=== PATIENT | male | born 1935 | race Caucasian/White ===

== ENCOUNTER 2018-07-13 09:58 | Day surgery (SDC) | payer MEDICARE, OTHER ==
--- NOTE | 2018-07-12 13:30 | RAD REPORT ---
EXAM DESCRIPTION: RAD - Chest Pa And Lat (2 Views) - 07/12/2018 1:24 pm CLINICAL HISTORY: Preop chest, pending hernia repair, history of diabetes, history of open heart roslyn orestes COMPARISON: May 2017 TECHNIQUE: PA and lateral views of the chest were obtained. FINDINGS: The lungs are clear of an acute infiltrate, suspicious mass or failure finding. A few gran ulomas are present and stable. Patient has a mild interstitial lung disease pattern. Lung markings ar e stable from comparison. Sternotomy wires are in place. Heart size is normal and central vasculatu re is within normal limits. No pleural effusion or pneumothorax seen. No acute bony finding noted. No aortic abnormality. IMPRESSION: Mild chronic interstitial lung disease and old granulomatous disease. No acute finding or significant change from comparison.
[2018-07-12 14:47] LABS: Absolute Lymphocytes (CBC) 1.1 K/uL (0.7-4.9); Absolute Monocytes 0.3 K/uL (0.1-1.3); Absolute Neutrophil 4.2 K/uL (1.8-8.0); Basophils % 0.9 % (0-1.3); Eosinophils % 3.1 % (0-4.4); Hematocrit 42.4 % (39.6-49.0); Lymphocytes % 19.2 % (15.3-44.8); MCH 32.9 pg (27.0-35.0); MCV 94.1 fL (80-100); MPV 9.9 fL (7.6-11.3); Monocytes % 5.6 % (3.3-12.3); RBC Red Blood Cell Count 4.51 M/uL (4.33-5.43)
[2018-07-12 14:59] LABS: Potassium 4.1 mmol/L (3.5-5.1)
[~2018-07-13 09:58] MED LIST: CEFAZOLIN/SWI 1gm 1 GM/10 ML SYR IVP SCH
[2018-07-13] MEDS ORDERED: NA CHLORIDE 0.9% 1,000 ML ONE (10:23)
[2018-07-13] MEDS ORDERED: PROPOFOL 200 MG/20 ML VIAL IV ONE (11:23)
[2018-07-13] MEDS ORDERED: GLYCOPYRROLATE 0.2 MG/ML SYR ONE ×3 (11:24→12:24)
[2018-07-13] MEDS ORDERED: LIDOCAINE 1% MPF 5 ML VIAL ONE (11:24)
[2018-07-13] MEDS ORDERED: FENTANYL CITR 100 MCG/2 ML ONE (11:25)
[2018-07-13] MEDS ORDERED: ROCURONIUM 50 MG/5 ML VIAL IV ONE (11:43)
[2018-07-13] MEDS ORDERED: CEFAZOLIN/SWI 1gm 1 GM/10 ML SYR ONE (11:54)
[2018-07-13] MEDS ORDERED: NEOSTIGMINE 1 MG/ML -5 ML SYRINGE ONE (11:54)
[2018-07-13] MEDS ORDERED: EPHEDRINE SULF 50 MG/10 ML SYR ONE (12:14)
[2018-07-13] MEDS ORDERED: ATROPINE SULF 1 MG/10 ML SYR IV ONE (12:24)
--- NOTE | 2018-07-13 12:47 | P.BOP ---
Preoperative diagnosis: recurrent left inguinal hernia Postoperative diagnosis: same Primary procedure: Open repair of recurrent tender left inguinal hernia with mesh Network Control Operators Supervisor: ELVIS VILLASENOR Estimated blood loss: <10cc Specimen: hernia sac Anesthesia: General Complications: None Implants: mesh plug Transferred to: Recovery Room Condition: Good
[2018-07-13 13:50] VITALS: O2SAT 95
[2018-07-13 15:29] VITALS: BP 162/54; TEMP 97.5
--- NOTE | 2018-07-14 00:03 | DS ---
Date of Discharge: 07/13/2018 Diagnosis: Recurrent tender left inguinal hernia. Procedures: Open repair of recurrent tender left inguinal hernia with mesh. Disposition: Home. Activity: As tolerated. No heavy lifting. Followup: Follow up in my office in 1 week. Call for appointment [phone]. Keep area dry for 48 ho urs, then may shower. Keep cold compress over the area for the next 24 hours. Medications: Include Tylenol No. 3 q.4 hours p.r.n. pain, Bactrim DS p.o. b.i.d. ABIOLA/ROBIN Voice ID: [id number] Report ID: [id number]
--- NOTE | 2018-07-14 00:03 | OP ---
Date of Procedure: 07/13/2018 Surgeon: Vadim Colon MD Special Effects Person: Alissa Herrmann. Preoperative Diagnosis: Recurrent tender left inguinal hernia. Postoperative Diagnosis: Recurrent tender left inguinal hernia. Procedures: Open repair of recurrent tender left inguinal hernia with mesh. Estimated Blood Loss: Less than 10 cc. Specimen: Hernia sac. Complications: None. Implant: Mesh plug. Indications: This is the case of an 83-year-old patient with multiple medical problems. He is a hea vy regional manager. He has a lot of work that he does because he is 83 years old very active man and same tatianna e that obviously he carried consequences of lifting and hernia, so he has multiple hernias in his bod y repaired in the past, he says in the left side. He thinks this is #4 time. He was advised the imp ortance of taking care of himself and avoiding heavy lifting, although he claims back that he is a ve ry active man and he will remain like that. So, we advised him about ways how to do alternate moveme nts, so he does not develop hernias all the time from wear and tear. He understands the benefits, al ternatives, and risks of repair which include, but not limited to infection, bleeding, damage to tomas cent structures, anesthesia complication, nonhealing wound, chronic numbness, chronic pain, AL, and e maria dolores . He also understands this may not relieve any symptoms, he might need more than one surgic al intervention. He has previous mesh in that area. He has also the risk of a damage to the testicl es, not only the vas deferens but also blood vessels and nerves from all of his hernias repair. At o ne point, maybe we might not be able to repair that, so that is why it is so important for him to be compliant. He is tender, so he wants to repair this time once again, so we understanding those restr ictions will agree to help. Description Of Procedure: Area was marked by me and the patient in the holding room. A time-out was called after the patient was prepped and draped in usual sterile fashion and after inducing anesthes ia. An inguinal incision was made using one of the previous incisions all the way down to the Daniela 's fascia until we find external oblique aponeurosis, which was opened in direction of the fiber. Il ioinguinal nerve and iliohypogastric nerve were identified and protected behind external oblique apon eurosis. We noticed spermatic cord going through a lot of scar tissue present in that area, also pre vious mesh and previous clip. We noticed a small opening in that just right at the pubic tubercle an d the previous mesh. We noticed that we can dissect the hernia sac and ligated free with 2-0 nylon a fter making sure the content is completely reduced, which is fatty tissue in this time. The hernia s ac was suture ligated after twisting and once again making sure there is no content inside the hernia sac. Then, after that, I used mesh plug and feel like cavity there and secured to the pubic tubercl e with shelving edge of the inguinal ligament and some of the transversalis fascia and made sure the mesh goes nice and secured in that area, but allowing spermatic cord to come through it without stran gulation. The testicles seem to be intact. So, that moment, I proceeded then to irrigate the area, injection of local anesthetic, closed the external oblique aponeurosis after putting the nerve back i nto the inguinal canal. The ilioinguinal nerve, iliohypogastric nerve and then external oblique apon eurosis and then after that, we proceeded to close Daniela's fashion with 3-0 chromic and then the ski n with radha. Sponge counts and instrument counts were correct at the end of the case. Testicles were in the scrotum. The patient was sent to recovery in stable condition. NAHID Voice ID: [id number] Report ID: [id number]
== END 2018-07-13 14:50 | disposition home or self-care (01) ==
LOC: OR 09:58
PROVIDERS: ATTEND Surgery
PROC: 0YU64JZ Supplement Left Inguinal Region with Synthetic Substitute, Percutaneous Endoscopic Approach (ICD-10-PCS; principal; 2018-07-13 13:00)
DX: K40.31 Unilateral inguinal hernia, with obstruction, without gangrene, recurrent (principal); Z96.653 Presence of artificial knee joint, bilateral; E11.9 Type 2 diabetes mellitus without complications; I10 Essential (primary) hypertension
CPT/HCPCS: 36415; 49651; 71046; 80048; 82962 ×2; 85025; 88302; J0690; J2710; J3010; J7030

== ENCOUNTER 2019-02-01 07:54 | Inpatient (IN) | payer MEDICARE ==
--- NOTE | 2019-02-01 08:53 | RAD REPORT ---
EXAM DESCRIPTION: RAD - Chest Single View - 02/01/2019 8:45 am CLINICAL HISTORY: COUGH Chest pain. COMPARISON: Chest Pa And Lat (2 Views) dated 01/23/2019; Chest Pa And Lat (2 Views) dated 11/07/2018; Chest Pa And Lat (2 Views) dated 07/12/2018; Chest Pa And Lat (2 Views) dated 06/11/2017 FINDINGS: Portable technique limits examination quality. Mild ill-defined opacity is present in the right lung base which may represent developing pneumonia/ aspiration. Small bilateral pleural effusions are seen. The heart is moderately enlarged in size. No displaced fractures.Sternotomy wires seen. IMPRESSION: Small developing infiltrate versus focus of aspiration in the right lower lobe noted.
[2019-02-01 09:15] LABS: Absolute Lymphocytes (CBC) 0.8 K/uL (0.7-4.9); Absolute Monocytes 0.4 K/uL (0.1-1.3); Absolute Neutrophil 5.5 K/uL (1.8-8.0); Basophils % 0.7 % (0-1.3); Eosinophils % 1.7 % (0-4.4); Hematocrit 41.3 % (39.6-49.0); Lymphocytes % 11.1 % (15.3-44.8); Monocytes % 6.3 % (3.3-12.3); RBC Red Blood Cell Count 4.43 M/uL (4.33-5.43)
[2019-02-01 09:16] LABS: Protime INR 1.1
[2019-02-01 09:32] LABS: Albumin 3.5 g/dL (3.4-5.0); Bilirubin Direct 0.2 mg/dL (0-0.2); Bilirubin Total 0.8 mg/dL (0.2-1.0); Magnesium 2.6 mg/dL (1.8-2.4); Potassium 3.7 mmol/L (3.5-5.1); Protein, Total 6.4 g/dL (6.4-8.2); Troponin (Emerg Dept Use Only) 0.02 ng/mL (0.0-0.045)
--- NOTE | 2019-02-01 10:01 | ER ---
Nurse's Notes [facility] Name: Maximino Bhat Age: 83 yrs Sex: Male : 1935 Arrival Date: 02/01/2019 Time: 07:56 Bed 4 Private MD: Paige Stapleton C Diagnosis: Dyspnea;Unspecified combined systolic (congestive) and diastolic (congestive) heart failure Presentation: 02/01 08:04 Presenting complaint: Patient states: cough and congestion x 1 month. Pt reports at ss 0100 this morning he had nasal congestion which he believes was caused by the azithromycin he had been taking. Transition of care: patient was not received from another setting of care. Onset of symptoms is unknown. Risk Assessment: Do you want to hurt yourself or someone else? Patient reports no desire to harm self or others. Initial Sepsis Screen: Does the patient meet any 2 criteria? No. Patient's initial sepsis screen is negative. Does the patient have a suspected source of infection? No. Patient's initial sepsis screen is negative. Care prior to arrival: None. 08:04 Method Of Arrival: Ambulatory ss 08:04 Acuity: MARINE 3 ss Historical: - Allergies: 08:06 No Known Allergies; ss - PMHx: 08:06 Hypertension; Diabetes - IDDM; CAD; Myocardial infarction; High Cholesterol; ss - PSHx: 08:06 Triple bypass; Knee surgery; ss - Immunization history:: Adult Immunizations up to date. - Social history:: Smoking status: Patient/guardian denies using tobacco. - Ebola Screening: : Patient denies exposure to infectious person Patient denies travel to an Ebola-affected area in the 21 days before illness onset. - Family history:: not pertinent. Screenin:09 Abuse screen: Denies threats or abuse. Denies injuries from another. Nutritional sg screening: No deficits noted. Tuberculosis screening: No symptoms or risk factors identified. Never had TB. Fall Risk None identified. Assessment: 08:23 General: Appears in no apparent distress. comfortable, well groomed, well developed, sg well nourished, Behavior is calm, cooperative, appropriate for age. Pain: Denies pain. Neuro: Level of Consciousness is awake, alert, obeys commands, Oriented to person, place, time, situation, Power Project Manager are equal bilaterally Moves all extremities. Full function Gait is steady, Speech is normal, Facial symmetry appears normal, Pupils are PERRLA. Cardiovascular: Capillary refill is brisk in bilateral fingers Patient's skin is warm and dry. Pulses are palpable in right radial artery and left radial artery Chest pain is denied. Respiratory: Airway is patent Respiratory effort is even, unlabored, Respiratory pattern is regular, symmetrical, Breath sounds are clear bilaterally. GI: Abdomen is flat, non-distended, Bowel sounds present X 4 quads. : No signs and/or symptoms were reported regarding the genitourinary system. EENT: No signs and/or symptoms were reported regarding the EENT system. Derm: Skin is pink, warm \T\ dry. Musculoskeletal: No signs and/or symptoms reported regarding the musculoskeletal system. Vital Signs: 08:01 Temp 97.0; ss 08:04 Resp 16; Weight 61.23 kg; Height 6 ft. 1 in. (185.42 cm); Pain 0/10; ss 08:07 BP 151 / 83; sv 08:30 BP 150 / 75; Pulse 73; Resp 14; Pulse Ox 98% ; sv 09:48 BP 147 / 80; Pulse 80; Resp 14; Pulse Ox 98% ; sv 10:30 BP 163 / 81; Pulse 71; Resp 14; Pulse Ox 95% ; sv 11:00 BP 155 / 76; Pulse 71; Resp 14; Pulse Ox 95% ; sv 11:55 BP 158 / 86; Pulse 89; Resp 14; Pulse Ox 96% on R/A; aj1 08:04 Body Mass Index 17.81 (61.23 kg, 185.42 cm) ss ED Course: 07:56 Patient arrived in ED. as 07:56 Paige Stapleton MD is Private Physician. as 07:58 Kervin Velez, RN is Primary Nurse. sg 08:00 Stew Polanco MD is Attending Physician. candi 08:06 Triage completed. ss 08:06 Arm band placed on right wrist. ss 08:10 EKG done, by highway maintenance technician. reviewed by Stew Polanco MD. at1 08:44 X-ray completed. Portable x-ray completed in exam room. Patient tolerated procedure jb2 well. 08:45 XRAY Chest (1 view) In Process Unspecified. EDMS 09:00 Initial lab(s) drawn, by me, sent to lab. Inserted saline lock: 20 gauge in right sg forearm, using aseptic technique. Blood collected. 09:00 First set of blood cultures drawn by me. sg 09:30 Second set of blood cultures drawn by me. 10:00 Paige Stapleton MD is Hospitalizing Provider. [facility] 12:00 No provider procedures requiring assistance completed. aj1 12:05 Patient has correct armband on for positive identification. aj1 12:17 Report given to SHAGGY Prather on 4th floor. aj1 Administered Medications: 11:09 Drug: Lasix 20 mg Route: IVP; Site: right antecubital; aj1 11:10 Drug: D50W 25 ml Route: IVP; Site: right antecubital; aj1 11:50 Drug: Zithromax 250 mg Route: IVPB; Infused Over: 1 hrs; Site: right antecubital; aj1 Point of Care Testing: Blood Glucose: 11:50 Blood Glucose: 79 mg/dL; aj1 Ranges: Outcome: 10:01 Decision to Hospitalize by Provider. [facility] 12:01 Admitted to Tele accompanied by tech, via wheelchair. aj1 12:01 Condition: stable 12:01 Discharge instructions given to patient, Instructed on the need for admit, Demonstrated understanding of instructions. 12:12 Patient left the ED. bd Signatures: Dispatcher [employer] EDMS Bre Rebolledo Angela, RN RN aj1 Merced Cali, RN Kervin Herzog RN RN sg Anderson, Corey, MD MD cha Buechter, Jesse jbLanny King Shelby, RN RN ss Gonzales, Amanda, curriculum manager EKG Tat1
--- NOTE | 2019-02-01 10:01 | EDPHYS ---
Physician Documentation [facility] Name: Maximino Bhat Age: 83 yrs Sex: Male : 1935 Arrival Date: 02/01/2019 Time: 07:56 Bed 4 Private MD: Paige Stapleton C ED Physician Stew Polanco HPI: 02/01 08:34 This 83 yrs old Male presents to ER via Ambulatory with complaints of candi Shortness Of Breath. 08:34 The patient has shortness of breath with light activity. Onset: The symptoms/episode candi began/occurred 3 day(s) ago. Duration: The symptoms are chronic. The patient's shortness of breath has no apparent modifying factors. Associated signs and symptoms: The patient has no apparent associated signs or symptoms. Severity of symptoms: At their worst the symptoms were. The patient has experienced similar episodes in the past, several times. Historical: - Allergies: 08:06 No Known Allergies; ss - PMHx: 08:06 Hypertension; Diabetes - IDDM; CAD; Myocardial infarction; High Cholesterol; ss - PSHx: 08:06 Triple bypass; Knee surgery; ss - Immunization history:: Adult Immunizations up to date. - Social history:: Smoking status: Patient/guardian denies using tobacco. - Ebola Screening: : Patient denies exposure to infectious person Patient denies travel to an Ebola-affected area in the 21 days before illness onset. - Family history:: not pertinent. ROS: 08:34 Constitutional: Negative for fever, chills, and weight loss, Eyes: Negative for injury, candi pain, redness, and discharge, ENT: Negative for injury, pain, and discharge, Neck: Negative for injury, pain, and swelling, Cardiovascular: Negative for chest pain, palpitations, and edema, Abdomen/GI: Negative for abdominal pain, nausea, vomiting, diarrhea, and constipation, Back: Negative for injury and pain, : Negative for injury, bleeding, discharge, and swelling, MS/Extremity: Negative for injury and deformity, Skin: Negative for injury, rash, and discoloration, Neuro: Negative for headache, weakness, numbness, tingling, and seizure, Psych: Negative for depression, anxiety, suicide ideation, homicidal ideation, and hallucinations, Allergy/Immunology: Negative for hives, rash, and allergies, Endocrine: Negative for neck swelling, polydipsia, polyuria, polyphagia, and marked weight changes, Hematologic/Lymphatic: Negative for swollen nodes, abnormal bleeding, and unusual bruising. 08:34 Respiratory: Positive for cough. Exam: 08:34 Constitutional: This is a well developed, well nourished patient who is awake, alert, candi and in no acute distress. Head/Face: Normocephalic, atraumatic. Eyes: Pupils equal round and reactive to light, extra-ocular motions intact. Lids and lashes normal. Conjunctiva and sclera are non-icteric and not injected. Cornea within normal limits. Periorbital areas with no swelling, redness, or edema. ENT: Nares patent. No nasal discharge, no septal abnormalities noted. Tympanic membranes are normal and external auditory canals are clear. Oropharynx with no redness, swelling, or masses, exudates, or evidence of obstruction, uvula midline. Mucous membranes moist. Neck: Trachea midline, no thyromegaly or masses palpated, and no cervical lymphadenopathy. Supple, full range of motion without nuchal rigidity, or vertebral point tenderness. No Meningismus. Chest/axilla: Normal chest wall appearance and motion. Nontender with no deformity. No lesions are appreciated. Cardiovascular: Regular rate and rhythm with a normal S1 and S2. No gallops, murmurs, or rubs. Normal PMI, no JVD. No pulse deficits. Respiratory: Lungs have equal breath sounds bilaterally, clear to auscultation and percussion. No rales, rhonchi or wheezes noted. No increased work of breathing, no retractions or nasal flaring. Abdomen/GI: Soft, non-tender, with normal bowel sounds. No distension or tympany. No guarding or rebound. No evidence of tenderness throughout. Back: No spinal tenderness. No costovertebral tenderness. Full range of motion. Male : Normal genitalia with no discharge or lesions. Skin: Warm, dry with normal turgor. Normal color with no rashes, no lesions, and no evidence of cellulitis. Neuro: Awake and alert, GCS 15, oriented to person, place, time, and situation. Cranial nerves II-XII grossly intact. Motor strength 5/5 in all extremities. Sensory grossly intact. Cerebellar exam normal. Normal gait. Psych: Awake, alert, with orientation to person, place and time. Behavior, mood, and affect are within normal limits. 08:34 Musculoskeletal/extremity: DVT Exam: no pain, no tenderness, negative Homans' sign noted on exam, no appreciated bluish discoloration, no erythema, no increased warmth, swelling. Vital Signs: 08:01 Temp 97.0; ss 08:04 Resp 16; Weight 61.23 kg; Height 6 ft. 1 in. (185.42 cm); Pain 0/10; ss 08:07 BP 151 / 83; sv 08:30 BP 150 / 75; Pulse 73; Resp 14; Pulse Ox 98% ; sv 09:48 BP 147 / 80; Pulse 80; Resp 14; Pulse Ox 98% ; sv 10:30 BP 163 / 81; Pulse 71; Resp 14; Pulse Ox 95% ; sv 11:00 BP 155 / 76; Pulse 71; Resp 14; Pulse Ox 95% ; sv 11:55 BP 158 / 86; Pulse 89; Resp 14; Pulse Ox 96% on R/A; aj1 08:04 Body Mass Index 17.81 (61.23 kg, 185.42 cm) ss MDM: 08:01 Patient medically screened. [facility] 08:36 Data reviewed: vital signs, nurses notes, lab test result(s), EKG, radiologic studies, candi plain films. 02/01 08:34 Order name: Basic Metabolic Panel; Complete Time: 09:49 [facility] 02/01 08:34 Order name: CBC with Diff; Complete Time: 09:49 [facility] 02/01 08:34 Order name: LFT's; Complete Time: 09:49 [facility] 02/01 08:34 Order name: Magnesium; Complete Time: 09:49 [facility] 02/01 08:34 Order name: NT PRO-BNP; Complete Time: 09:49 [facility] 02/01 08:34 Order name: PT-INR; Complete Time: 09:49 [facility] 02/01 08:34 Order name: Troponin (emerg Dept Use Only); Complete Time: 09:49 [facility] 02/01 08:34 Order name: XRAY Chest (1 view); Complete Time: 09:49 [facility] 02/01 08:37 Order name: Flu; Complete Time: 09:49 [facility] 02/01 09:13 Order name: Blood Culture Adult (2) [facility] 02/01 09:13 Order name: Procalcitonin [facility] 02/01 09:59 Order name: Echo w/ Doppler [facility] 02/01 11:53 Order name: Glucose, Ancillary Testing EDMS 02/01 08:34 Order name: EKG; Complete Time: 08:35 [facility] 02/01 08:34 Order name: Cardiac monitoring; Complete Time: 08:46 [facility] 02/01 08:34 Order name: EKG - Nurse/Tech; Complete Time: 08:46 [facility] 02/01 08:34 Order name: IV Saline Lock; Complete Time: 09:11 [facility] 02/01 08:34 Order name: Labs collected and sent; Complete Time: 09:11 [facility] 02/01 08:34 Order name: O2 Per Protocol; Complete Time: 08:46 [facility] 02/01 08:34 Order name: O2 Sat Monitoring; Complete Time: 08:46 [facility] 02/01 10:11 Order name: CONS Physician Consult EDID Administered Medications: 11:09 Drug: Lasix 20 mg Route: IVP; Site: right antecubital; aj1 11:10 Drug: D50W 25 ml Route: IVP; Site: right antecubital; aj1 11:50 Drug: Zithromax 250 mg Route: IVPB; Infused Over: 1 hrs; Site: right antecubital; aj1 Point of Care Testing: Blood Glucose: 11:50 Blood Glucose: 79 mg/dL; aj1 Ranges: Critical Glucose Levels:Adult <50 mg/dl or >400 mg/dl <40 mg/dl or >180 mg/dl Disposition: 02/01/19 10:01 Hospitalization ordered by Paige Stapleton for Inpatient Admission. Preliminary diagnosis are Dyspnea, Unspecified combined systolic (congestive) and diastolic (congestive) heart failure. - Bed requested for Telemetry/MedSurg (Inpatient). - Status is Inpatient Admission. bd - Condition is Stable. - Problem is new. - Symptoms have improved. UTI on Admission? No Signatures: Dispatcher [employer] EDID Bre Rebolledo Angela, RN RN aj1 Stew Polanco MD MD cha Smirch, Shelby, RN RN ss Corrections: (The following items were deleted from the chart) 10:23 10:01 Hospitalization Ordered by Paige Stapleton MD for Inpatient Admission. Preliminary bd diagnosis is Dyspnea; Unspecified combined systolic (congestive) and diastolic (congestive) heart failure. Bed requested for Telemetry/MedSurg (Inpatient). Status is Inpatient Admission. Condition is Stable. Problem is new. Symptoms have improved. UTI on Admission? No. candi 10:34 10:23 02/01/2019 10:01 Hospitalization Ordered by A Daya CIFUENTES for Inpatient Admission. bd Preliminary diagnosis is Dyspnea; Unspecified combined systolic (congestive) and diastolic (congestive) heart failure. Bed requested for Telemetry/MedSurg (Inpatient). Status is Inpatient Admission. Condition is Stable. Problem is new. Symptoms have improved. UTI on Admission? No. bd 12:12 10:34 02/01/2019 10:01 Hospitalization Ordered by A Daya CIFUENTES for Inpatient Admission. bd Preliminary diagnosis is Dyspnea; Unspecified combined systolic (congestive) and diastolic (congestive) heart failure. Bed requested for Telemetry/MedSurg (Inpatient). Status is Inpatient Admission. Condition is Stable. Problem is new. Symptoms have improved. UTI on Admission? No. bd
[2019-02-01] MEDS ORDERED: FUROSEMIDE 20 MG/ 2ML VIAL ONE (11:05)
[2019-02-01] MEDS ORDERED: D50W 25 GM/50 ML SYRINGE IV ONE (11:07)
[2019-02-01] MEDS ORDERED: AZITHROMYCIN IV 250 MG in NA CHLORIDE 0.9% 250 ML IVPB ONE (11:15)
[2019-02-01] MEDS ORDERED: MORPHINE 2 MG/ML SYR IV PRN (12:15)
[2019-02-01] MEDS ORDERED: ALBUTEROL 2.5 MG/3 ML NEB SOL NEB PRN (12:15)
[2019-02-01] MEDS ORDERED: ACETAMINOPHEN 500 MG TAB PO PRN (12:15)
[2019-02-01] MEDS ORDERED: IPRATROPIUM BROM 0.5MG/2.5ML NEB PRN (12:15)
[2019-02-01] MEDS ORDERED: ONDANSETRON 4 MG/2 ML VIAL IV PRN (12:15)
[2019-02-01] MEDS ORDERED: D50W 25 GM/50 ML SYRINGE IV PRN (12:50)
[2019-02-01] MEDS ORDERED: GLUCAGON 1 MG/VIAL IM PRN (12:50)
[2019-02-01 13:13] VITALS: BMI 31.9
--- NOTE | 2019-02-01 14:34 | ECHO ---
HEIGHT: 6 ft 1 in WEIGHT: 242 lb 0 oz DATE OF STUDY: 02/01/[address]: Stew Polanco MD 2-DIMENSIONAL: YES M.MODE: YES DOPPLER: YES COLOR FLOW: YES TDS: NO PORTABLE: NO DEFINITY: NO BUBBLE STUDY: NO DIAGNOSIS: CONGESTIVE HEART FAILURE CARDIAC HISTORY: CATHERIZATION: YES SURGERY: YES PROSTHETIC VALVE: NO PACEMAKER: NO MEASUREMENTS (cm) DIASTOLIC (NORMALS) SYSTOLIC (NORMALS) IVSd 1.2 (0.6-1.2) LA Diam 4.3 (1.9-4.0) LVEF 30-35% LVIDd 5.6 (3.5-5.7) LVIDs 4.3 (2.0-3.5) %FS 23% LVPWd 1.3 (0.6-1.2) Ao Diam 3.4 (2.0-3.7) 2 DIMENSIONAL ASSESSMENT: RIGHT ATRIUM: NORMAL LEFT ATRIUM: DILATED RIGHT VENTRICLE: NORMAL LEFT VENTRICLE: LEFT VENTRICULAR HYPERTROPHY TRICUSPID VALVE: NORMAL MITRAL VALVE: NORMAL PULMONIC VALVE: NORMAL AORTIC VALVE: NORMAL PERICARDIAL EFFUSION: NONE AORTIC ROOT: NORMAL LEFT VENTRICULAR WALL MOTION: GLOBAL HYPOKENSIS. DOPPLER/COLOR FLOW: MILD TO MODERATE MITRAL REGURGITATION. MILD TRICUSPID REGURGITATION. NORMAL RIGHT VENTRICULAR SYSTOLIC PRESSURE. COMMENTS: DEPRESSED LEFT VENTRICULAR EJECTION FRACTION. LEFT VENTRICULAR HYPERTROPHY. MILD TO MODERATE MITRAL REGURGITATION. MILD TRICUSPID REGURGITATION. TECHNOLOGIST: Miguelina WIGGINS
[2019-02-01] MEDS: SACUBITRIL/VALSARTAN 24/26 MG TAB PO SCH ×2 (15:38→21:13)
--- NOTE | 2019-02-01 16:03 | CON ---
Chief Complaint: Shortness of breath. History Of Present Illness: Mr. Bhat has been short of breath. He has been gaining weight. He h as noticed dyspnea on exertion for several months. He took an azithromycin pill and then started fee ling more short of breath, so he came to the emergency room. After being in the emergency room, he w as noted to have edema of his legs, mild pulmonary edema, and evidence of possible aspiration pneumon ia in the right lung. He has a history of bypass surgery in 1997. Since then, he has done well. He has not had any recurrent interventions. He has not needed hospitalization for chest pain. He is n ot having chest pain now. Physical Examination: General: He is 6 feet 1 inch, our chart says he is 135 pounds. I would not be surprised if he is cl oser to 135 kilos. I am really not sure what his weight is, but it is definitely over 220 pounds SURINDER NT: Unremarkable. He appears to be somewhat confused, very hard of hearing. Not in any distress. Lungs: Reveal sparse basilar crackles. Heart: Exam regular rate and rhythm. No murmur or gallop. Abdomen: Soft. Extremities: 2+ edema. Impression: Mr. Bhat probably does not need any change in his medications other than start taking Lasix. I think he should probably be on Lasix regularly and we should probably get an echocardiogra m to document what kind of ejection fraction he has. Thank you very much for your kind referral of Mr. Bhat. I will follow him with you. BUBBA/ROBIN Voice ID: [id number] Report ID: [id number]
[2019-02-01] MEDS ORDERED: FUROSEMIDE 20 MG/ 2ML VIAL IV SCH (17:00)
[2019-02-01] MEDS: INSULIN -REGULAR HUMAN 50 UNIT/0.5 ML ML SQ SCH ×2 (17:40→21:10)
[2019-02-01] MEDS: FUROSEMIDE 40 MG/4 ML VIAL IV SCH (17:41)
[2019-02-01] MEDS: ENOXAPARIN 40 MG/0.4 ML SQ SCH (17:41)
--- NOTE | 2019-02-01 17:54 | HP ---
Date of Admission: 02/01/2019 Chief Complaint: Shortness of breath. History Of Present Illness: This is an 83-year-old male patient who contacted my office 2 weeks ago approximately as he was having cough, congestion, coughing up colored mucus, and at that time he was prescribed amoxicillin. He took amoxicillin as prescribed and it did not help, so last week he came to see me, and I was concerned about possibility of pneumonia, so we did outpatient chest x-ray, which was negative for pneumonia and the patient was sent home from office with cefuroxime. This week he contacted and informed us that he was having some shortness of breath last week after he saw me and after he started cefuroxime, so he stopped taking cefuroxime. The patient was advised to go to emergency room because of his complaint of shortness of breath, but then he informed office staff that he was no longer having shortness of breath, but still was having cough and coughing up yellowish colored mucus, so a different antibiotic, Z-Lit, was prescribed this week, which was just in last day or 2 days, and the patient was instructed that if he starts to have any fever or shortness of breath, then he needs to go to the emergency room. Today , he comes to the emergency room with complaints of shortness of breath and after he was evaluated, he was admitted to the hospital. I saw him in the emergency room this morning. His was present with him at bedside and upon further questioning the patient reports that for last 1 week or so, he is having shortness of breath along with shortness of breath at night time while he is sleeping. He was also noted to have some leg swelling when I examined him in the ER, and this is something new, and he reported that this is new as of last 1 week. The patient is being admitted to the hospital with congestive heart failure and pneumonia problem. Allergies: TO CARVEDILOL AND ADHESIVE TAPE. Medications: List reviewed. Review of Systems: Respiratory: As mentioned above. Cardiovascular: As mentioned above. All other systems reviewed and negative. Past Medical History: Hypertension, hyperlipidemia, coronary artery disease, diabetes mellitus, sleep apnea, diverticulosis, osteoarthritis, benign prostatic hypertrophy. Past Surgical History: TURP, appendectomy, coronary artery bypass surgery, knee replacement. Family History: Father had diabetes and heart disease. Mother, diabetes, heart disease. Social History: . Lives at home with . Negative for smoking and alcohol use. Physical Examination: Vital Signs: Height 6 feet, 1 inch, weight 61.23 kg, blood pressure 151/83, pulse 61, respiratory rate 16, temperature 97F. General: Awake, alert, oriented, not in distress. HEENT: Head atraumatic, normocephalic. Conjunctivae nonerythematous. Sclerae white. Mouth, no thrush or edema noted. Ears/Nose, no mass, lesion, discharge noted. Neck: Supple. No JVD, lymph nodes, bruit, thyromegaly noted. Lungs: Bilateral lower rales noted. This is something new compared to before. Not using accessory muscles of respiration. Heart: Normal heart sounds, no murmur or gallop. Abdomen: Soft, bowel sounds normal. No guarding, rigidity, tenderness, mass, hepatosplenomegaly, distention, or bruit noted. Extremities: Bilateral grade 2 pedal edema. Skin: No rash, ulcer, cellulitis. Lymphatics: No lymph node enlargement in neck, supraclavicular, infraclavicular region. Neuro: No focal neurological deficit. Chest: Unremarkable. External Genitalia: Deferred. Rectal: Deferred. Laboratory Data: White count 6.2, hemoglobin 13.5, platelets 189. Magnesium level 2.6. ProBNP 2366. Sodium 147, potassium 3.7, chloride 111, bicarb 32, BUN 16, creatinine 0.93, glucose 51, which was corrected in emergency room with IV D50 solution. Chest x-ray infiltrate in the right lower lobe. Heart is moderately enlarged and small bilateral pleural effusion present. Impression: 1. Congestive heart failure, acute. 2. Pneumonia. 3. Coronary artery disease. 4. Hypoglycemia. 5. Hypertension. 6. Diabetes mellitus. 7. Hyperlipidemia. 8. Diverticulosis. 9. Osteoarthritis, multiple sites. 10. Benign prostatic hypertrophy. Plan: We will go ahead and admit him to hospital for further evaluation and management of this problem. The patient is appropriate for inpatient and is expected to spend 2 midnights in the hospital. We will continue home medications per order. Diabetes will be managed with insulin sliding scale per order. We will continue his antihypertensive medication and monitor blood pressure, if necessary make adjustment on medications. IV Zithromax will be continued while in the hospital. At this point, I am more concerned about congestive heart failure problem than pneumonia on basis of today's presentation. We will start him on IV Lasix. Echocardiogram with Doppler will be done today, and we will monitor electrolytes. Depending on his condition, we will decide if he can possibly go home day after tomorrow or not. Depending on the echocardiogram results, we will make a decision on how to adjust his medications for congestive heart failure problem. I suspect he may have systolic dysfunction, but we will know more about it once we get echocardiogram result. AMALIA/ROBIN Voice ID: [id number] MTDD
[2019-02-01] MEDS ORDERED: POTASSIUM CL SA 10 MEQ TAB PO ONE (20:00)
[2019-02-01] MEDS: METOPROLOL TAR 25 MG TAB PO SCH (21:12)
[2019-02-01] MEDS: ATORVASTATIN 20 MG TAB PO SCH (21:12)
[2019-02-02 04:20] LABS: Absolute Lymphocytes (CBC) 1.1 K/uL (0.7-4.9); Absolute Monocytes 0.4 K/uL (0.1-1.3); Absolute Neutrophil 4.2 K/uL (1.8-8.0); Eosinophils % 2.7 % (0-4.4); Hematocrit 39.3 % (39.6-49.0); MPV 10.5 fL (7.6-11.3); Monocytes % 7.5 % (3.3-12.3)
[2019-02-02 04:44] LABS: Magnesium 2.4 mg/dL (1.8-2.4); Potassium 3.6 mmol/L (3.5-5.1)
--- NOTE | 2019-02-02 06:59 | RAD REPORT ---
EXAM DESCRIPTION: Nida Single View02/02/2019 6:50 am CLINICAL HISTORY: Chest pain COMPARISON: February 01, 2019 FINDINGS: No change in a mild right basilar opacity. . The heart is mildly to moderately enlarged. S mall pleural effusions suspected Postsurgical changes involve the chest.
[2019-02-02] MEDS: INSULIN -REGULAR HUMAN 50 UNIT/0.5 ML ML SQ SCH ×4 (07:30→21:00)
[2019-02-02] MEDS: FINASTERIDE 5 MG TAB PO SCH (08:32)
[2019-02-02] MEDS: METOPROLOL TAR 25 MG TAB PO SCH ×2 (08:32→20:39)
[2019-02-02] MEDS: ASPIRIN EC 81 MG TAB PO SCH (08:32)
[2019-02-02] MEDS: CLOPIDOGREL 75 MG TABLET PO SCH (08:32)
[2019-02-02] MEDS: SACUBITRIL/VALSARTAN 24/26 MG TAB PO SCH ×2 (08:32→20:38)
[2019-02-02] MEDS: AMLODIPINE 10 MG TAB PO SCH (08:34)
[2019-02-02] MEDS: FUROSEMIDE 40 MG/4 ML VIAL IV SCH ×2 (08:34→17:18)
--- NOTE | 2019-02-02 08:54 | PN ---
Mr. hBat has depressed ejection fraction. His medication regimen now includes Lasix, beta-acrri and Entresto. We could consider adding a mineralocorticoid inhibitor in the future, but at the pres ent point, I would stay where we are. I think he is close to being ready to be discharged home. BUBBA/ROBIN Voice ID: [id number] Report ID: [id number]
[2019-02-02] MEDS ORDERED: LOSARTAN POTASSIUM 50 MG TABLET PO SCH (09:00)
[2019-02-02] MEDS ORDERED: POTASSIUM CL SA 10 MEQ TAB PO ONE (09:00)
[2019-02-02] MEDS: AZITHROMYCIN IV 250 MG in NA CHLORIDE 0.9% 250 ML IVPB SCH (09:42)
--- NOTE | 2019-02-02 10:32 | EKG ---
Test Date: 2019-02-01 Test Time: 08:06:52 Chart Changer: NA MEASUREMENT RESULTS: Intervals: Rate: 77 MA: 156 QRSD: 164 QT: 440 QTc: 497 [place]: P: 57 MA: 156 QRS: -72 T: 103 INTERPRETIVE STATEMENTS: Sinus rhythm with frequent premature ventricular complexes Left axis deviation Right bundle branch block Abnormal ECG Compared to ECG 12/29/2015 05:39:35 no significant change from previous ECG Electronically Signed On 02-01-19 09:37:22 CDT by Rogerio Valverde
--- NOTE | 2019-02-02 10:34 | EKG ---
Test Date: 2019-02-01 Test Time: 13:38:17 Intake Clinician: ESTHELA MEASUREMENT RESULTS: Intervals: Rate: 73 OR: 210 QRSD: 164 QT: 446 QTc: 491 [place]: P: 56 OR: 210 QRS: -76 T: 98 INTERPRETIVE STATEMENTS: Sinus rhythm with 1st degree AV block with occasional premature ventricular complexes Left axis deviation Right bundle branch block Abnormal ECG Compared to ECG 02/01/2019 08:06:52 First degree AV block now present Electronically Signed On 02-01-19 17:48:06 CDT by Rogerio Valverde
--- NOTE | 2019-02-02 13:28 | PN ---
Date of Progress Note: 02/02/2019 Subjective: The patient was seen this morning for followup. He was sitting in the chair. His was present with him at bedside. Overall, he feels better. His cough and shortness of breath are be tter. Objective: Vital signs: Reviewed. HEENT: Unremarkable. Lungs: Bilateral good equal air entry. Not in any distress. Presence of rales in both lower lung f ields. Heart: Sounds normal. Abdomen: Soft. Bowel sounds normal. No guarding, rigidity, tenderness, or distention. Extremities: Leg edema from both legs has improved. Laboratory Data: White count 6, hemoglobin 13, platelets 193. Sodium 148, potassium 3.6, chloride 1 11, bicarb 32, BUN 15, creatinine 0.83, glucose 109, and magnesium 2.4. Echocardiogram shows ejectio n fraction 30%-35%. Impression: 1.Congestive heart failure, acute, systolic. 2.Coronary artery disease. 3.Hypertension. 4.Diabetes mellitus. Plan: We will continue current medications which is IV Lasix, monitor intake and output. The patien t's admission weight was recorded wrong yesterday. Today's weight is 242 pounds. We will continue I V Lasix and Entresto which was started yesterday. Continue metoprolol. Depending on his condition o ur plan is to discharge him to go home tomorrow. The patient will be instructed to follow up with me and hand expansion envelope maker on outpatient basis. Over period of time, if his ejection fraction does not improve then he may benefit from evaluation for AICD placement and this wa s discussed with the patient. AMALIA/ROBIN Voice ID: [id number] Report ID: [id number]
[2019-02-02] MEDS: ENOXAPARIN 40 MG/0.4 ML SQ SCH (17:19)
[2019-02-02] MEDS: ATORVASTATIN 20 MG TAB PO SCH (20:38)
--- NOTE | 2019-02-03 05:36 | EKG ---
Test Date: 2019-02-02 Test Time: 10:06:57 Emissions Testing And Repair Technician: NA MEASUREMENT RESULTS: Intervals: Rate: 77 TN: 192 QRSD: 172 QT: 450 QTc: 509 [place]: P: 68 TN: 192 QRS: -73 T: 99 INTERPRETIVE STATEMENTS: Normal sinus rhythm Left axis deviation Right bundle branch block Abnormal ECG Compared to ECG 02/01/2019 13:38:17 Ventricular premature complex(es) no longer present First degree AV block no longer present Electronically Signed On 02-03-19 05:36:14 CDT by Rogerio Valverde
[2019-02-03 07:17] LABS: Magnesium 2.4 mg/dL (1.8-2.4)
[2019-02-03] MEDS: INSULIN -REGULAR HUMAN 50 UNIT/0.5 ML ML SQ SCH (07:30)
[2019-02-03 08:59] VITALS: BP 159/77; TEMP 97.8
[2019-02-03] MEDS: METOPROLOL TAR 25 MG TAB PO SCH (09:55)
[2019-02-03] MEDS: FINASTERIDE 5 MG TAB PO SCH (09:55)
[2019-02-03] MEDS: SACUBITRIL/VALSARTAN 24/26 MG TAB PO SCH (09:56)
[2019-02-03] MEDS: FUROSEMIDE 40 MG/4 ML VIAL IV SCH (09:56)
[2019-02-03] MEDS: CLOPIDOGREL 75 MG TABLET PO SCH (09:56)
[2019-02-03] MEDS: ASPIRIN EC 81 MG TAB PO SCH (09:56)
[2019-02-03] MEDS: AMLODIPINE 10 MG TAB PO SCH (09:56)
[2019-02-03] MEDS: AZITHROMYCIN IV 250 MG in NA CHLORIDE 0.9% 250 ML IVPB SCH (10:05)
--- NOTE | 2019-02-03 13:29 | DS ---
Date of Discharge: 02/03/2019 Physical Examination: HEENT: Unremarkable. Lungs: Clear to auscultation. Not using accessory muscles of respiration. Heart: Sounds normal. Abdomen: Soft. Bowel sounds normal. No guarding, rigidity, tenderness distention. Extremities: No leg edema. Laboratory Data: On 02/01/2019, white count 6.8, hemoglobin 13.5, platelets 189. On 02/02/2019, white count 6, hemoglobin 13, platelets 193. His last chemistry from today, sodium 146, potassium 4, chloride 110, bicarb 33, BUN 13, creatinine 0.93, glucose 141, magnesium 2.4. Discharge Medications And Instructions: Continue all prior home medication except following changes: 1. Stop losartan and start Entresto 1 tablet by mouth 2 times a day, which is 24/26 mg dose and the patient will take 1 tablet by mouth 2 times a day. 2. Change furosemide 40 mg tablet, the patient to take 2 tablets by mouth 2 times a day. Follow up at my office in 2 weeks and follow up with Dr. Valverde/Dr. Mcrae in 3 weeks. Hospital Course: This is an 83-year-old male patient who was admitted to the hospital after he presented to emergency room with complaints of shortness of breath. Please see dictated H and P for more information. After patient was evaluated in the ER, he was admitted to the hospital. I was concerned about congestive heart failure noting on the basis of his symptoms. He was started on IV Lasix. At home, he takes Lasix 40 mg twice a day. The patient is very compliant with his medication. During this hospitalization, we gave him IV Lasix 40 mg twice a day and echocardiogram showed ejection fraction 30% to 35%, so with that information, we discontinued his losartan and started him on Entresto. Cardiology consultation was requested from Dr. Valverde, and the patient responded very well to this treatment. His shortness of breath, paroxysmal nocturnal dyspnea, orthopnea, and leg swelling, all the symptoms have resolved now. He is feeling fine like back to his normal self. He is medically stable for discharge with above-mentioned discharge medication and instructions. The patient was continued on his antibiotic azithromycin while in the hospital. Final Diagnoses: 1. Congestive heart failure, acute, systolic. 2. Pneumonia. 3. Coronary artery disease. 4. Hypoglycemia. 5. Hypertension. 6. Diabetes mellitus. 7. Hyperlipidemia. 8. Diverticulosis. 9. Osteoarthritis, multiple sites. 10. Benign prostatic hypertrophy. AMALIA/MODL Voice ID: [id number] Report ID: [id number] MTDD
[2019-02-03 14:59] VITALS: O2SAT 94
--- NOTE | 2019-02-04 07:30 | PN ---
Date of Progress Note: 02/03/2019 Mr. Bhat was admitted by Dr. Stapleton and had been followed by Dr. Valverde for congestive heart failure . Ejection fraction was noted to be 30% to 35%. He is now on Lasix, beta-carri, and Entresto. Ov ernight, he has diuresed very well. He is in sinus rhythm. He has no rales, no JVD, no edema, and n o specific complaint. I think Mr. Bhat can go home. His case has been discussed with Dr. Stapleton. He has an appointment office in the near future for [employer]. We will see what that shows prior to making final decisions. LING/ROBIN Voice ID: [id number] Report ID: [id number]
== END 2019-02-03 12:25 | disposition home or self-care (01) | DRG 291 ==
LOC: ER 07:54 → ERHOLD 10:15 → 4TH 12:00
PROVIDERS: ADMIT Internal Medicine; ATTEND Internal Medicine
DX: I11.0 Hypertensive heart disease with heart failure (principal); I50.21 Acute systolic (congestive) heart failure; J18.9 Pneumonia, unspecified organism; I25.10 Atherosclerotic heart disease of native coronary artery without angina pectoris; E16.2 Hypoglycemia, unspecified; E11.649 Type 2 diabetes mellitus with hypoglycemia without coma; E78.5 Hyperlipidemia, unspecified; K57.90 Diverticulosis of intestine, part unspecified, without perforation or abscess without bleeding; M19.90 Unspecified osteoarthritis, unspecified site; N40.0 Benign prostatic hyperplasia without lower urinary tract symptoms
CPT/HCPCS: 36415; 71045; 80048; 80076; 82962; 83735; 83880; 84145; 84484; 85025; 85610; 87040; 87804; 93005; 93306; 96374; 96375; 99285; G0378; J0456; J1650; J1940